=== PATIENT | female | born 1945 | race Caucasian/White ===

== ENCOUNTER 2024-06-21 01:07 | Emergency (ER) | payer OTHER ==
[2024-06-21 01:49] LABS: Absolute Basophils 0.2 K/uL (0-0.5); Absolute Eosinophils 0.5 K/uL (0-0.5); Absolute Lymphocytes (CBC) 1.6 K/uL (0.7-4.9); Absolute Monocytes 0.5 K/uL (0.1-1.3); Absolute Neutrophil 3.2 K/uL (1.8-8.0); Basophils % 2.7 % (0-1.3); Eosinophils % 9.1 % (0-4.4); Hematocrit 32.4 % (36.0-45.0); Lymphocytes % 27.4 % (15.3-44.8); MCH 29.9 pg (27.0-35.0); MCHC 33.8 g/dL (32.0-36.0); MCV 88.4 fL (80-100); MPV 8.1 fL (7.6-11.3); Monocytes % 7.8 % (3.3-12.3); Nucleated Red Blood Cells % 0.1 % (0-0); Platelets 212 thou/uL (152-406); RBC Red Blood Cell Count 3.67 M/uL (3.86-4.86); Red Cell Distribution Width 14.3 % (12.1-15.2)
[2024-06-21 01:59] LABS: Anion Gap 8.7 mEq/L (5.0-15.0); Potassium 4.7 mEq/L (3.5-5.1); Troponin High Sensitivity 9.3 pg/mL (<58.9)
--- NOTE | 2024-06-21 04:25 | ER ---
Nurse's Notes [facility] Name: Eileen Moran Age: 78 yrs Sex: Female : 1945 Arrival Date: 06/21/2024 Time: 01:07 Bed 8 Private MD: Kavon Byrnes V Diagnosis: Chest pain, unspecified;Bradycardia, unspecified Presentation: 06/21 01:15 Chief complaint: Patient states: c/o CP starting around [id number] radiating down L arm al5 along with ZHENG rating 7/10, states she took 162 mg asa. ems gave pt 162 asa and 0.4 nitro, pain is now a 0/10, states does not even notice it. Coronavirus screen: At this time, the client does not indicate any symptoms associated with coronavirus-19. Ebola Screen: No symptoms or risks identified at this time. Initial Sepsis Screen: Does the patient meet any 2 criteria? No. Patient's initial sepsis screen is negative. Does the patient have a suspected source of infection? No. Patient's initial sepsis screen is negative. Risk Assessment: Do you want to hurt yourself or someone else? Patient reports no desire to harm self or others. Onset of symptoms was June 21, 2024. 01:15 Method Of Arrival: EMS: [facility] al5 01:15 Acuity: ARELIS 2 al5 01:27 Care prior to arrival: Medication(s) given: ASA, 81 mg, x 2, Nitroglycerin, 0.4 mg SL al5 IV initiated. 18 GA, in the left antecubital area. Triage Assessment: 01:27 General: Appears in no apparent distress. Behavior is calm, cooperative. Pain: Denies al5 pain. EENT: No signs and/or symptoms were reported regarding the EENT system. Neuro: Level of Consciousness is awake, alert, obeys commands, Oriented to person, place, time, situation. Cardiovascular: Capillary refill < 3 seconds Patient's skin is warm and dry. Respiratory: Airway is patent Respiratory effort is even, unlabored, Respiratory pattern is regular, symmetrical. GI: No signs and/or symptoms were reported involving the gastrointestinal system. : No signs and/or symptoms were reported regarding the genitourinary system. Derm: Skin is intact, Skin is pink, warm \T\ dry. normal. Musculoskeletal: No signs and/or symptoms reported regarding the musculoskeletal system. Historical: - Allergies: 01:19 Codeine; al5 :19 duloxetine HCl; al5 :19 Levofloxacin; al5 :19 Omeprazole; 5 :19 QUINOLONES; 5 :19 Reglan; al5 - Home Meds: : amlodipine 2.5 mg oral tablet [Active]; metoprolol tartrate 25 mg Oral tablet [Active]; al5 levothyroxine 88 mcg tablet [Active]; hydroxychloroquine 200 mg oral tablet [Active]; fentanyl 25 mcg/hr Topical patch, transdermal 72 hours [Active]; gabapentin 800 mg oral tablet [Active]; aspirin 81 mg oral tablet,chewable [Active]; atorvastatin 10 mg oral tablet [Active]; losartan 50 mg oral tablet [Active]; - PSHx: : LINX implant esophagus; al5 - Immunization history:: Adult Immunizations up to date. - Infectious Disease History:: Denies. - Social history:: Smoking status: Patient denies any tobacco usage or history of. Screenin:29 [facility] ED Fall Risk Assessment (Adult) History of falling in the last 3 months, al5 including since admission No falls in past 3 months (0 pts) Confusion or Disorientation No (0 pts) Intoxicated or Sedated No (0 pts) Impaired Gait No (0 pts) Mobility Assist Device Used No (0 pt) Altered Elimination No (0 pt) Score/Fall Risk Level 0 - 2 = Low Risk Oriented to surroundings, Maintained a safe environment, Hourly rounding (assess needs \T\ fall precautionary measures) done. Abuse screen: Denies threats or abuse. Denies injuries from another. Nutritional screening: On lactose intolerant, gluten free. Tuberculosis screening: No symptoms or risk factors identified. Assessment: 01:28 Reassessment: see triage assessment. al5 02:22 Reassessment: Patient appears in no apparent distress at this time. No changes from al5 previously documented assessment. Patient and/or family updated on plan of care and expected duration. Pain level reassessed. Patient is alert, oriented x 3, equal unlabored respirations, skin warm/dry/pink. 03:12 Reassessment: Patient appears in no apparent distress at this time. No changes from al5 previously documented assessment. Patient and/or family updated on plan of care and expected duration. Pain level reassessed. Patient is alert, oriented x 3, equal unlabored respirations, skin warm/dry/pink. 04:08 Reassessment: Patient appears in no apparent distress at this time. No changes from al5 previously documented assessment. Patient and/or family updated on plan of care and expected duration. Pain level reassessed. Patient is alert, oriented x 3, equal unlabored respirations, skin warm/dry/pink. Vital Signs: 01:15 BP 195 / 75; Pulse 51; Resp 16; Temp 98.1; Pulse Ox 99% ; Weight 53.52 kg; Height 5 ft. al5 0 in. ; Pain 0/10; 01:30 BP 180 / 81; Pulse 52; Resp 16; Pulse Ox 99% on R/A; al5 02:00 BP 164 / 65; Pulse 46; Resp 14; Pulse Ox 96% ; al5 02:00 BP 180 / 81; ec2 02:19 BP 164 / 65; ec2 03:00 BP 146 / 83; Pulse 86; Resp 14; Pulse Ox 97% on R/A; al5 04:08 BP 164 / 66; Pulse 45; Resp 16; Pulse Ox 98% on R/A; al5 01:15 Body Mass Index 23.05 (53.52 kg, 152.4 cm) al5 01:15 Pain Scale: Adult al5 02:00 patient aaox4, asymptomatic. al5 ED Course: 01:11 Patient arrived in ED. rv1 01:12 Ruben Delcid MD is Attending Physician. ec2 01:12 Kavon Byrnes MD is Private Physician. ec2 01:15 Judi Keith, SAGE is Primary Nurse. al5 01:19 Triage completed. al5 01:24 EKG done, by ED staff, reviewed by Ruben Delcid MD. oe 01:28 Arm band placed on right wrist. Patient placed in an exam room, on a stretcher. al5 01:29 No provider procedures requiring assistance completed. al5 01:29 Patient has correct armband on for positive identification. Bed in low position. Call al5 light in reach. Side rails up X2. Provided Education on: processes and procedures. 01:31 Basic Metabolic Panel Sent. al5 01:31 CBC with Diff Sent. al5 01:31 Troponin HS Sent. al5 01:31 Maintain EMS IV. Dressing intact. Good blood return noted. Site clean \T\ dry. Gauge \T\ al 5 site: 18G LAC. Flushed with 10 mL NS. 01:47 XRAY Chest (1 view) In Process Unspecified. EDMS 03:39 Lab(s) recollected, by ED staff, sent to lab. oe 03:54 Troponin High Sensitivity Sent. oe 04:24 Kavon Byrnes MD is Referral Physician. ec2 04:32 IV discontinued, intact, bleeding controlled, No redness/swelling at site. Pressure al5 dressing applied. Administered Medications: No medications were administered Medication: 01:28 VIS not applicable for this client. al5 Outcome: 04:24 Discharge ordered by . ec2 04:32 Discharged to home ambulatory, with family, al5 04:32 Condition: good 04:32 Discharge instructions given to patient, family, Instructed on discharge instructions, follow up and referral plans. Demonstrated understanding of instructions, follow-up care, 04:33 Patient left the ED. al5 Signatures: Dispatcher [employer] EDMS Austen Anguiano oe Gaby Davies rv1 Ruben Delcid MD MD ec2 Judi Keith RN RN al5 Corrections: (The following items were deleted from the chart) 02:29 02:00 BP 164 / 65; Pulse 46bpm; Resp 14bpm; Pulse Ox 96%; al5 al5
--- NOTE | 2024-06-21 04:25 | EDPHYS ---
Physician Documentation [facility] Name: Eileen Moran Age: 78 yrs Sex: Female : 1945 Arrival Date: 06/21/2024 Time: 01:07 Bed 8 Private MD: Kavon Byrnes V ED Physician Ruben Dlecid HPI: 06/21 01:14 This 78 yrs old Female presents to ER via Unassigned with complaints of chest pain. ec2 01:14 Patient arrives today for evaluation of left-sided chest pain. Patient reports pain ec2 rating to left arm. Patient reports no exertional component. Patient reports that she had taken Imitrex, aspirin and had some improvement. EMS reports that they gave her nitroglycerin and patient reports resolution in symptoms. Is on medication for hyperlipidemia.. Historical: - Allergies: 01:19 Codeine; al5 01:19 duloxetine HCl; al5 01:19 Levofloxacin; al5 01:19 Omeprazole; al5 01:19 QUINOLONES; al5 01:19 Reglan; al5 - Home Meds: 01:19 amlodipine 2.5 mg oral tablet [Active]; metoprolol tartrate 25 mg Oral tablet [Active]; al5 levothyroxine 88 mcg tablet [Active]; hydroxychloroquine 200 mg oral tablet [Active]; fentanyl 25 mcg/hr Topical patch, transdermal 72 hours [Active]; gabapentin 800 mg oral tablet [Active]; aspirin 81 mg oral tablet,chewable [Active]; atorvastatin 10 mg oral tablet [Active]; losartan 50 mg oral tablet [Active]; - PSHx: 01:19 LINX implant esophagus; al5 - Immunization history:: Adult Immunizations up to date. - Infectious Disease History:: Denies. - Social history:: Smoking status: Patient denies any tobacco usage or history of. ROS: 01:14 Constitutional: as per hpi ec2 Exam: 01:13 ECG was reviewed by the Attending Physician. ec2 01:14 Constitutional: GEN: NAD Head: atraumatic Eyes: EOMI Ears: External ears are ec2 normal. CV: regular rate LUNGS: no respiratory distress ABD: non-distended SKIN: no evidence of rashes MSK: no evidence of trauma Vital Signs: 01:15 BP 195 / 75; Pulse 51; Resp 16; Temp 98.1; Pulse Ox 99% ; Weight 53.52 kg; Height 5 ft. al5 0 in. ; Pain 0/10; 01:30 BP 180 / 81; Pulse 52; Resp 16; Pulse Ox 99% on R/A; al5 02:00 BP 164 / 65; Pulse 46; Resp 14; Pulse Ox 96% ; al5 02:00 BP 180 / 81; ec2 02:19 BP 164 / 65; ec2 03:00 BP 146 / 83; Pulse 86; Resp 14; Pulse Ox 97% on R/A; al5 04:08 BP 164 / 66; Pulse 45; Resp 16; Pulse Ox 98% on R/A; al5 01:15 Body Mass Index 23.05 (53.52 kg, 152.4 cm) al5 01:15 Pain Scale: Adult al5 02:00 patient aaox4, asymptomatic. al5 MDM: 01:12 Patient medically screened. ec2 01:13 Data reviewed: vital signs. ec2 01:14 ED course: Patient arrives today for evaluation of chest pain. Examination remarkable ec2 for well-appearing nontoxic individuals otherwise in no acute distress with a reassuring examination. Will obtain lab work, EKG, chest x-ray. Differential includes ACS, chest wall pain, reflux, doubt PE, doubt dissection.. 01:23 ED course: EKG independently reviewed and interpreted by me, shows normal sinus rhythm, ec2 rate of 50, no acute ST segment elevations, intervals are nonconcerning.. 02:00 ED course: Metabolic profile shows renal dysfunction, CBC with minimal anemia, troponin ec2 within normal ranges. . 03:44 ED course: Repeat EKG independently reviewed and interpreted by me, shows normal sinus ec2 rhythm, rate of 44, no acute ST segment elevations, intervals are nonconcerning. Patient is noted to be bradycardic, external records show patient heart rate when she was last here in 2017 ranging 50-60. Patient is asymptomatic, has stable blood pressures, patient can manage outpatient expectantly with primary care.. 04:18 ED course: Repeat troponin with no remarkable change. ec2 04:24 ED course: On reassessment patient without recurrence of symptoms, patient remains ec2 asymptomatic, no complaints of lightheadedness or dizziness, no chest pain. I instructed her to follow-up with her primary care doctor to further discuss her metoprolol and her heart rates in the 40s to 50s. Return precautions given.. 06/21 01:12 Order name: Basic Metabolic Panel; Complete Time: 01:59 ec2 06/21 01:12 Order name: CBC with Diff; Complete Time: 01:59 ec2 06/21 01:12 Order name: Troponin HS; Complete Time: 01:59 ec2 06/21 03:25 Order name: Troponin High Sensitivity; Complete Time: 04:18 ec2 06/21 01:12 Order name: XRAY Chest (1 view) ec2 06/21 01:12 Order name: EKG; Complete Time: 01:13 ec2 06/21 01:12 Order name: Cardiac monitoring; Complete Time: 01:24 ec2 06/21 01:12 Order name: EKG - Nurse/Tech; Complete Time: 01:24 ec2 06/21 01:12 Order name: IV Saline Lock; Complete Time: 01:30 ec2 06/21 01:12 Order name: Labs collected and sent; Complete Time: 01:31 ec2 06/21 01:12 Order name: O2 Per Protocol; Complete Time: 01:30 ec2 06/21 01:12 Order name: O2 Sat Monitoring; Complete Time: 01:30 ec2 06/21 01:18 Order name: Misc. Order: repeat ekg/trop 0330; Complete Time: 03:43 ec2 06/21 03:25 Order name: EKG - Nurse/Tech; Complete Time: 03:43 ec2 Administered Medications: No medications were administered Disposition Summary: 06/21/24 04:24 Discharge Ordered Notes: Location: Home ec2 Condition: Stable ec2 Diagnosis - Chest pain, unspecified ec2 - Bradycardia, unspecified ec2 Followup: ec2 - With: Kavon Byrnes MD - When: - Reason: Recheck today's complaints Discharge Instructions: - Discharge Summary Sheet ec2 - Bradycardia, Adult ec2 Forms: - Medication Reconciliation Form ec2 - Antibiotic Education ec2 - Prescription Opioid Use ec2 - Patient Portal Instructions ec2 - Leadership Thank You Letter ec2 Signatures: Dispatcher [employer] Ruben Hoover MD MD ec2 Judi Keith RN RN al5
[2024-06-21 04:45] VITALS: TEMP 98.1
[2024-06-21 04:53] VITALS: BP 164/66; O2SAT 98
--- NOTE | 2024-06-21 12:34 | EKG ---
Test Date: 2024-06-21 Test Time: 01:18:52 [employer]: DERICK MEASUREMENT RESULTS: Intervals: Rate: 50 OK: 168 QRSD: 88 QT: 438 QTc: 399 [place]: P: 48 OK: 168 QRS: -49 T: 54 INTERPRETIVE STATEMENTS: Sinus bradycardia Left anterior fascicular block Abnormal ECG Compared to ECG 05/12/2014 06:47:18 Sinus tachycardia no longer present Electronically Signed On 06-21-24 12:33:37 CDT by Adam Blandon
--- NOTE | 2024-06-21 12:34 | EKG ---
Test Date: 2024-06-21 Test Time: 03:40:45 [employer] Gr[employer] Feeder: DERICK MEASUREMENT RESULTS: Intervals: Rate: 44 CO: 182 QRSD: 88 QT: 452 QTc: 386 [place]: P: 65 CO: 182 QRS: -48 T: 57 INTERPRETIVE STATEMENTS: Marked sinus bradycardia Left axis deviation Abnormal ECG Compared to ECG 06/21/2024 01:18:52 Left-axis deviation now present Left anterior fascicular block no longer present Electronically Signed On 06-21-24 12:33:35 CDT by Adam Blandon
--- NOTE | 2024-06-22 10:26 | RAD REPORT ---
EXAM DESCRIPTION: RAD - Chest Single View - 06/21/2024 1:45 am CLINICAL HISTORY: CHEST PAIN COMPARISON: None FINDINGS: Cardiac silhouette is within normal limits. EKG leads project over the chest. There is no focal parenchymal or pleural disease. There is no acute osseous process visualized. IMPRESSION: No evidence of acute cardiopulmonary disease. Electronically signed by: Vinh Garcia MD 06/21/2024 01:59 AM CDT RP Due to temporary technical issues with the PACS/Fluency reporting system, reports are being signed by the in house radiologist without review as a courtesy to ensure prompt reporting. The interpreting r adiologist is fully responsible for the content of the report.
== END 2024-06-21 04:33 | disposition home or self-care (01) ==
LOC: ER 01:07
DX: R07.89 Other chest pain (principal); R00.1 Bradycardia, unspecified; Z79.82 Long term (current) use of aspirin
CPT/HCPCS: 36415; 71045; 80048; 84484; 85025; 93005; 99284